=== PATIENT | male | born 1995 | race Caucasian/White ===

== ENCOUNTER 2017-10-20 20:56 | Inpatient (IN) ==
[2017-10-20] MEDS ORDERED: 0.9 % Sodium Chloride 1,000 ML IVC ONE ×2 (21:08→21:09)
--- NOTE | 2017-10-20 21:25 | Emergency Department Note ---
Disposition Clinical Impression: Elevated creatine kinase Rhabdomyolysis Qualifiers: Rhabdomyolysis type: non-traumatic Qualified Code(s): M62.82 - Rhabdomyolysis Leukocytosis Qualifiers: Leukocytosis type: unspecified Qualified Code(s): D72.829 - Elevated white blood cell count, unspecified Disposition: Admitted As Inpatient Condition: Good Time of Disposition: 22:12 General Adult HPI - General Chief complaint: ED Recheck/Abnormal Lab/Rx Stated complaint: CK elevated/ sent by UC Time Seen by Provider: 10/20/17 20:59 Source: patient Mode of arrival: ambulatory Limitations: no limitations Nursing Notes Reviewed: Yes Vital Signs Reviewed: Yes - History of Present Illness HPI Narrative: Patient is a 22-year-old male that presents the emergency department from urgent care due to having an elevated creatinine kinase level. Patient states that about 3 days ago he had worked out and did a arm work out. Patient states that since then his arms have been stiff and sore. States that last night his urine started to turn dark. Said that today his urine continued to dark in and he went to urgent care. Says that at urgent care his laboratory tests were drawn and his CK level was over 2000. Patient denies any other symptoms. Patient has any chest pain, shortness of breath, abdominal pain. Patient denies any pain in his legs or back at this time. Pain Scale: 7 - Related Data Previous Rx's Medication Instructions Recorded Cyclobenzaprine [Flexeril] 5 mg PO HS #3 tablet 10/20/17 Ibuprofen [Motrin] 600 mg PO Q6HR PRN #20 tab 10/20/17 predniSONE [PredniSONE] 20 mg PO BID #10 tablet 10/20/17 Allergies Allergy/AdvReac Type Severity Reaction Status Date / Time Amoxicillin AdvReac See Verified 10/20/17 14:46 Comments Cefprozil AdvReac See Verified 10/20/17 14:46 Comments codeine AdvReac Unresponsiv Verified 10/20/17 14:46 e Erythromycin Base AdvReac See Verified 10/20/17 14:46 [From Pediazole] Comments Sulfisoxazole AdvReac See Verified 10/20/17 14:46 [From Pediazole] Comments All systems ED: reviewed and negative except as stated. Cardiovascular: Denies: chest pain Respiratory: Denies: dyspnea Gastrointestinal: Denies: abdominal pain, nausea, vomiting Musculoskeletal: Reports: other (Bilateral upper extremity pain) Past Medical History - Past Medical History Medical history: Reports: no medical history Surgical history: Reports: no surgical history - Social History Smoking Status: Never smoker Smokeless Tobacco Status: No Alcohol use: Reports: occasionally Drug use: Reports: none Physical Exam - General Limitations: no limitations General appearance: alert, in no apparent distress - Head Head exam: atraumatic, normocephalic - Eye Eye exam: Present: normal appearance, EOMI - Neck Neck exam: Present: normal inspection, full ROM, trachea midline - Respiratory Respiratory exam: Present: normal lung sounds bilaterally. Absent: respiratory distress, wheezes - Cardiovascular Cardiovascular exam: Present: normal rhythm, tachycardia, normal heart sounds, + S1, +S2 - Abdominal Exam Abdominal exam: Present: soft, Non-Tender, normal bowel sounds - Extremities Exam Extremities exam: Present: normal inspection, full ROM, tenderness (Patient has mild bicep tenderness bilaterally) - Back Exam Back exam: Present: normal inspection, full ROM, CVA tenderness (R), CVA tenderness (L) - Neurological Exam Neurological exam: Present: alert, oriented X3 - Psychiatric Psychiatric exam: Present: normal affect, normal mood - Skin Skin exam: Present: warm, dry, intact Course Vital Signs Temperature 98.3 F 10/20/17 21:00 Pulse Rate 135 10/20/17 21:00 Respiratory Rate 18 10/20/17 21:00 Blood Pressure 130/94 10/20/17 21:00 O2 Sat by Pulse Oximetry 98 10/20/17 21:00 Temperature 98.3 F 10/20/17 21:00 Pulse Rate 135 10/20/17 21:00 Respiratory Rate 18 10/20/17 21:00 Blood Pressure 130/94 10/20/17 21:00 O2 Sat by Pulse Oximetry 98 10/20/17 21:00 Oxygen Delivery Oxygen Delivery Room Air Medical Decision Making - [facility] Narrative Medical decision making narrative: Due the patient presenting to the emergency department with an elevated CK level from urgent care there is concern for the patient possibly being in rhabdomyolysis. We will recheck CBC, BMP, urinalysis, CK as well as EKG. Patient will also be given IV fluids to hydrate. Patient's CK was greater than 20,000. Patient's white blood cell count was 15.7. The remainder of his laboratory testing was relatively unremarkable. EKG did not show any ischemic changes. Patient will need to be admitted to the hospital for further evaluation and management and ongoing hydration due to the patient having rhabdomyolysis. There is no evidence of acute kidney injury at this time however the patient is at risk for developing possible renal dysfunction due to having significantly elevated creatinine kinase and being in rhabdomyolysis. Called and spoke the admitting hospitalist and he has accepted the patient their service. Patient be admitted to the hospitalist and further evaluation and management. - Medical Records Medical records reviewed: Yes I reviewed the patient's medical records. - Lab Data Lab results reviewed: Yes I reviewed the patient's lab results. Result diagrams: 10/20/17 21:19 10/20/17 21:19 Lab Results 10/20/17 10/20/17 10/20/17 Range/Units 21:19 21:19 22:24 WBC 15.7 H (4.3-11.1) K/mcL RBC 4.98 (4.19-5.50) M/mcL Hgb 15.1 (12.9-16.9) g/dL Hct 42.8 (37.5-50.1) % MCV 85.9 (83.0-100.0) fL MCH 30.3 (28.0-33.3) pg MCHC 35.3 (31.6-35.5) g/dL RDW 13.1 (11.5-14.5) % Plt Count 308 (140-400) K/mcL MPV 10.4 (9.4-12.4) fL Immature Gran % 0.4 (0-4) % Seg Neutrophils % 71.3 % Lymphocytes % 17.3 % Monocytes % 9.5 % Eosinophils % 1.2 % Basophils % 0.3 % Neutrophils # 11.2 H (1.6-8.9) K/mcL Lymphocytes # 2.7 (0.6-4.6) K/mcL Monocytes # 1.5 H (0.0-1.3) K/mcL Eosinophils # 0.2 (0.0-0.6) K/mcL Basophils # 0.1 (0.0-0.2) K/mcL Immature Plt Fraction 5.3 (1.1-6.1) % Sodium 138 (136-145) mEq/L Potassium 3.6 (3.5-5.1) mEq/L Chloride 102 (98-107) mEq/L Carbon Dioxide 25 (23-29) mEq/L BUN 9 (6-20) mg/dL Creatinine 0.88 (0.70-1.30) mg/dL Est GFR ( Amer) > 60 (> 60) Est GFR (Non-Af Amer) > 60 (> 60) BUN/Creatinine Ratio 10 (6-26) Glucose 89 (70-105) mg/dL Calculated Osmolality 284 (280-300) Calcium 9.2 (8.6-10.3) mg/dL Creatine Kinase > 77932 H (30-223) Units/L Urine Color Yellow (Yellow) Urine Clarity Clear (Clear) Urine pH 6.0 (5.0-8.0) pH Units Ur Specific [place] 1.006 L (1.010-1.025) Urine Protein 30 H (Neg-Trace) mg/dL Urine Glucose (UA) Normal (Normal) mg/dL Urine Ketones 80 H (Negative) mg/dL Urine Blood Large H (Negative) Urine Nitrite Negative (Negative) Urine Bilirubin Negative (Negative) Urine Urobilinogen Normal (Normal) mg/dL Ur Leukocyte Esterase Negative (Negative) Urine Microscopic RBC 0-3 (0-3) per hpf Urine Microscopic WBC 15-30 H (0-3) per hpf Ur Squamous Epith Cells Many H (None-Few) per lpf Urine Bacteria None Seen (None-Few) per hpf Hyaline Casts None Seen (None-Few) per lpf Ur Culture Indicated? NO (NO) - EKG Data EKG #1 EKG attestation: Yes I reviewed and interpreted this EKG. EKG results narrative: EKG shows a sinus tachycardia with a rate of 113 beats from it, MT interval of 191, QRS duration of 82, QTC of 421 with a normal axis. There is no evidence of STEMI and EKG. Attestation Statement - Attestation Attestation: I, Hoang Gamble, examined this patient and my medical decision-making was reviewed with the HOOP PUNCHER/PA/Advanced Practice Nurse/Resident Physician. I agree with the documented findings, disposition and treatment plan as described except to the extent set forth below. 22-year-old male presents emergency Department with concerns of elevated creatinine kinase. Patient does not usually workout and he had a an intense workout within the past few days. He started noticing generalized malaise and darkening of his urine. He went to an urgent care who noted that he has significantly elevated creatinine kinase. He was sent to the emergency department for further evaluation. Patient had creatinine kinase greater than 20,000 on repeat evaluation. He was started on IV fluids he will be admitted to the hospital for further care and evaluation. No evidence of renal failure at this time.
[2017-10-20 21:26] LABS: Basophils # 0.1 K/mcL (0.0-0.2); Basophils % 0.3 %; Eosinophils # 0.2 K/mcL (0.0-0.6); Eosinophils % 1.2 %; Hematocrit 42.8 % (37.5-50.1); Hemoglobin 15.1 g/dL (12.9-16.9); Immature Granulocytes % 0.4 % (0-4); Immature Platelets 5.3 % (1.1-6.1); Lymphocytes # 2.7 K/mcL (0.6-4.6); Lymphocytes % 17.3 %; Mean Corpuscular HGB Conc 35.3 g/dL (31.6-35.5); Mean Corpuscular Hemoglobin 30.3 pg (28.0-33.3); Mean Corpuscular Volume 85.9 fL (83.0-100.0); Mean Platelet Volume 10.4 fL (9.4-12.4); Monocytes # 1.5 K/mcL (0.0-1.3); Monocytes % 9.5 %; Neutrophils # 11.2 K/mcL (1.6-8.9); Platelet Count 308 K/mcL (140-400); Red Blood Count 4.98 M/mcL (4.19-5.50); Red Cell Distribution Width 13.1 % (11.5-14.5); Segmented Neutrophils % 71.3 %
[2017-10-20 22:01] LABS: BUN/Creatinine Ratio 10 (6-26); Blood Urea Nitrogen 9 mg/dL (6-20); Calcium 9.2 mg/dL (8.6-10.3); Carbon Dioxide 25 mEq/L (23-29); Chloride 102 mEq/L (98-107); Creatine Kinase > 20000 Units/L (30-223); Glucose 89 mg/dL (70-105); Osmolality,Calculated 284 (280-300); Potassium 3.6 mEq/L (3.5-5.1); Sodium 138 mEq/L (136-145); eGFR For Non-African Americans > 60 (> 60)
[2017-10-20] MEDS ORDERED: Naloxone 0.4 MG/ML INJ IVP PRN (22:29)
[2017-10-20] MEDS ORDERED: 0.9 % Sodium Chloride 1,000 ML IVC SCH ×2 (22:30→23:30)
[2017-10-20 22:33] LABS: Bilirubin,Urine Negative (Negative); Blood,Urine Large (Negative); Clarity,Urine Clear (Clear); Color,Urine Yellow (Yellow); Glucose,Urine (UA) Normal (Normal); Ketones,Urine 80 mg/dL (Negative); Leukocyte Esterase,Urine Negative (Negative); Nitrite,Urine Negative (Negative); Protein,Urine 30 mg/dL (Neg-Trace); Specific Gravity,Urine 1.006 (1.010-1.025); Urobilinogen,Urine Normal (Normal)
[2017-10-20 22:34] LABS: Bacteria,Urine None Seen per hpf (None-Few); Hyaline Casts,Urine None Seen per lpf (None-Few); RBC,Urine 0-3 per hpf (0-3); Squamous Epithelial Cell,Urine Many per lpf (None-Few); WBC,Urine 15-30 per hpf (0-3)
--- NOTE | 2017-10-20 23:29 | Internal Med History&Physical ---
<Bereket Pena - Last Filed: 10/20/17 23:23> Date of Encounter: 10/20/17 Time of Encounter: 23:23 Internal Medicine - H&P: HPI Chief complaint: elevated CPK Admitted From: Home Plans for Post Hospital Care: Home History of present illness: Mr. Saeed is a 22 year old male presented with chief complaint of elevated CPK. Patient reports that 3 days ago he started working out for the first time. He did lat pulldown exercises with low weight and increase repetitions. Peripheral 3 days his biceps became extremely sore and he was unable to extend at the elbow bilaterally. Also he was unable to abduct his shoulders past 90 degrees. He started noticing darkening of his urine and went to urgent care where CK level was 2000. He does not report soreness and any other place. He denied headache, blurry, ear pain, neck pain, chest pain, palpitations, shortness of breath, cough, abdominal pain, nausea, vomiting, diarrhea, dysuria, hematuria, lower extremity pain, numbness, tingling, bruising. Patient's family history is noncontributory. Past Med Surg Social Fam HX - Past Medical History Medical history: no medical history - Past Surgical History Surgical History: no surgical history - Social History Smoking Status: Never smoker Smokeless Tobacco Status: No Alcohol use: occasionally Drug use: none Occupational status: student Activity Level: Independent ambulation - Family History Sister Adopted: No Race: Family Member Ethnicity: Non- Living Status: Still Living Internal Medicine - H&P: Meds No Known Home Drugs 10/21/17 [History] 3 Allergy/AdvReac Type Severity Reaction Status Date / Time codeine Allergy Unresponsiv Verified 10/21/17 10:11 e Amoxicillin AdvReac See Verified 10/21/17 10:11 Comments Cefprozil AdvReac See Verified 10/21/17 10:11 Comments Erythromycin Base AdvReac See Verified 10/21/17 10:11 [From Pediazole] Comments Sulfisoxazole AdvReac See Verified 10/21/17 10:11 [From Pediazole] Comments All Systems PM: A 10-system review of systems was performed and is negative for pertinent findings except as documented above in the HPI. Review of systems: Constitutional: Denies fever, chills HEENT: Denies headache, vision changes, neck pain, sore throat, rhinorrhea Heart: Denies chest pain palpitations Lungs: Denies shortness of breath cough Abdomen: Denies abdominal pain nausea vomiting diarrhea Back: Denies back pain Kidney: Denies dysuria, hematuria Skin: Denies rash, lesions Extremities: Denies swelling, bruising Neuro: Denies numbness and tingling - Constitutional Vitals: Temp Pulse Resp BP Pulse Ox 98.3 F 135 18 130/94 98 10/20/17 21:10/20/17 21:10/20/17 21:10/20/17 21:10/20/17 21:00 Exam: General: Pleasant without distress HEENT: Head atraumatic, normocephalic, EOMI, PERRL, neck nontender to palpation , absent lymphadenopathy, Moist Mucous Membranes, Heart: Sinus tachycardia Lungs: Clear to auscultation bilaterally Abdomen: Soft nontender, nondistended positive bowel sounds Skin: warm and dry, absent rash Extremities: Absent pedal edema, Musculoskeletal: Patient is unable to extend elbow past 45 degrees bilaterally. He is unable to abduct shoulders past 90 degrees. He is able to fully flex at the elbow and abduct. Patient has soreness with palpation of bilateral bicep tendons. There is no tenderness of triceps, deltoids, supraspinatus, infraspinatus. Neuro: Cranial nerves II through XII intact, LE sensation equal bilaterally, UE and LEstrength 5/5, alert oriented 3, gait intact Vascular: Pedal and radial pulses 2 out of 4 Internal Med - H&P Results - Labs CBC & Chem 7: 10/20/17 21:19 10/20/17 21:19 - Assessment and plan (1) Rhabdomyolysis Current Visit: Yes Status: Acute Assessment and plan: 22-year-old male presents after having found but returned To have elevated creatinine kinase Patient started exercising for the first time 3 days ago and ever since has had bilateral biceps soreness Patient's creatinine kinase is greater than 20,000 He also reported darkening of his urine Serum creatinine potassium, sodium are normal limits Urinalysis shows large flat without microscopic red blood cells Patient's WBC is elevated at 15.7 likely secondary to rhabdomyolysis. Patient has been given 3 L of normal saline in the emergency room We will continue maintenance IV fluids of 300 mL an hour Repeat CMP in the morning with magnesium and phosphorus. Qualifiers: Rhabdomyolysis type: non-traumatic Qualified Code(s): M62.82 - Rhabdomyolysis (2) DVT prophylaxis Current Visit: Yes Status: Acute Assessment and plan: ambulate tid. - Time Spent With Patient Total time spent is greater than 50% in coordination of care (as documented) at patient's floor/unit and/or counseling patient: <Carleen Adames - Last Filed: 10/24/17 08:17> Date of Encounter: 10/20/17 Internal Medicine - H&P: HPI History of present illness: Mr. Saeed is a 22 year old male All Systems PM: A 10-system review of systems was performed and is negative for pertinent findings except as documented above in the HPI. - Constitutional Vitals: Temp Pulse Resp BP Pulse Ox 97.7 F 92 16 118/72 97 10/24/17 08:05 10/24/17 08:05 10/24/17 08:05 10/24/17 08:05 10/24/17 08:05 Internal Med - H&P Results - Labs CBC & Chem 7: 10/24/17 03:02 10/24/17 03:02 Labs: Short CBC 10/24/17 Range/Units 03:02 WBC 9.9 (4.3-11.1) K/mcL Hgb 13.4 (12.9-16.9) g/dL Hct 39.4 (37.5-50.1) % Plt Count 291 (140-400) K/mcL BMP 10/24/17 03:02 Sodium 138 Potassium 3.7 Chloride 106 Carbon Dioxide 26 BUN 6 Creatinine 0.61 L Glucose 91 Calcium 8.9 Liver Function 10/24/17 Range/Units 03:02 Total Bilirubin 0.3 (0.3-1.0) mg/dL Direct Bilirubin 0.1 (0.0-0.2) mg/dL AST 211 H (13-39) Units/L ALT 160 H (7-52) Units/L Alkaline Phosphatase 55 (34-104) Units/L Albumin 4.0 (3.5-5.7) g/dL - ABG Interpretation ABG results: 10/22/17 10/22/17 10/23/17 09:46 10:50 06:41 VBG pH 7.37 7.34 7.40 VBG pCO2 40 L VBG pO2 130 H VBG HCO3 25 - Assessment and plan (1) Rhabdomyolysis Current Visit: Yes Status: Acute Qualifiers: Rhabdomyolysis type: non-traumatic Qualified Code(s): M62.82 - Rhabdomyolysis (2) Hypokalemia Current Visit: Yes Status: Acute - Time Spent With Patient Total time spent is greater than 50% in coordination of care (as documented) at patient's floor/unit and/or counseling patient: - Attending Attestation Patient seen and examined. Chart reviewed. Case reviewed with resident. Agree with assessment and plan we will continue aggressive fluid hydration. Monitor CPK and electrolytes. Correct as needed.
[2017-10-21] MEDS ORDERED: Acetaminophen 325 MG TABLET PO PRN (00:36)
[2017-10-21] MEDS: 0.9 % Sodium Chloride 1,000 ML IVC SCH ×7 (01:36→22:09)
[2017-10-21 02:03] LABS: Hematocrit 36.6 % (37.5-50.1); Mean Corpuscular HGB Conc 34.7 g/dL (31.6-35.5); Mean Corpuscular Hemoglobin 30.2 pg (28.0-33.3); Mean Corpuscular Volume 87.1 fL (83.0-100.0); Mean Platelet Volume 10.5 fL (9.4-12.4); Platelet Count 240 K/mcL (140-400); Red Cell Distribution Width 13.1 % (11.5-14.5)
[2017-10-21 02:07] LABS: Hemoglobin 12.7 g/dL (12.9-16.9)
[2017-10-21 02:23] LABS: Alanine Aminotransferase 145 Units/L (7-52); Albumin 3.7 g/dL (3.5-5.7); Albumin/Globulin Ratio 1.9 (1.1-2.2); Alkaline Phosphatase 53 Units/L (34-104); Aspartate Amino Transferase 534 Units/L (13-39); BUN/Creatinine Ratio 10 (6-26); Bilirubin,Total 0.4 mg/dL (0.3-1.0); Blood Urea Nitrogen 7 mg/dL (6-20); Calcium 7.9 mg/dL (8.6-10.3); Carbon Dioxide 24 mEq/L (23-29); Chloride 110 mEq/L (98-107); Glucose 94 mg/dL (70-105); Magnesium 1.7 mg/dL (1.6-2.6); Osmolality,Calculated 288 (280-300); Phosphorous 3.4 mg/dL (2.7-4.5); Potassium 3.4 mEq/L (3.5-5.1); Sodium 140 mEq/L (136-145); Total Protein 5.7 g/dL (6.4-8.9); eGFR For Non-African Americans > 60 (> 60)
--- NOTE | 2017-10-21 09:57 | Internal Med Progress Note ---
<Reinaldo Salas - Last Filed: 10/21/17 16:01> Hospitalist Progress Note - Encounter Date of Encounter: 10/21/17 - Exam Vitals: Temp Pulse Resp BP Pulse Ox 98.9 F 103 16 134/87 99 10/21/17 10:59 10/21/17 10:59 10/21/17 10:59 10/21/17 10:59 10/21/17 10:59 - Assessment and Plan (1) Rhabdomyolysis Current Visit: Yes Status: Acute (2) DVT prophylaxis Current Visit: Yes Status: Acute - Time Spent with Patient Total time spent is greater than 50% in coordination of care (as documented) at patient's floor/unit and/or counseling patient: Internal Medicine: Result - Labs CBC & Chem 7: 10/21/17 01:49 10/21/17 11:45 Labs: Short CBC 10/21/17 Range/Units 01:49 WBC 12.0 H (4.3-11.1) K/mcL Hgb 12.7 L D (12.9-16.9) g/dL Hct 36.6 L (37.5-50.1) % Plt Count 240 (140-400) K/mcL BMP 10/21/17 10/21/17 01:49 11:45 Sodium 140 140 Potassium 3.4 L 3.6 Chloride 110 H 109 H Carbon Dioxide 24 25 BUN 7 5 L Creatinine 0.68 L 0.64 L Glucose 94 95 Calcium 7.9 L 8.8 Liver Function 10/21/17 10/21/17 Range/Units 01:49 11:45 Total Bilirubin 0.4 0.5 (0.3-1.0) mg/dL AST 534 H 548 H (13-39) Units/L ALT 145 H 168 H (7-52) Units/L Alkaline Phosphatase 53 56 (34-104) Units/L Albumin 3.7 4.0 (3.5-5.7) g/dL Consult Discharge Plan - Plan Referrals: NONE,PCP [Primary Care Provider] - Josue Crandall, [employer] T[employer]ER OPERATOR [Family Provider] - - Attending Attestation I examined this patient and my medical decision-making was reviewed with the Resident Physician on 10/21/17. I agree with the documented findings, disposition and treatment plan as described except to the extent set forth below. Mr Saeed is currently admitted for acute rhabdomyolysis. He remains moderate to high risk due to potential for worsening clinical status. He is at risk for acute renal failure related to rhabdo. Mr Saeed is resting at this time. He feels about the same. No fever or chills. No cough. No new muscle pain. Exam alert Comfortable Mucus membranes dry Heart reg Lungs clear ABd soft I/P 1. Acute rhabdoyolysis - Continue aggressive IV hydration. Consider adding bicarb to solution. Follow CPK and calcium. <Dillon Carlisle - Last Filed: 10/21/17 19:18> Hospitalist Progress Note - Encounter Date of Encounter: 10/21/17 Time of Encounter: 10:00 - Subjective Interval History: Mr. Saeed is a 22-year-old male with an unremarkable past medical history who has been admitted to that in the [facility] floor because of rhabdomyolysis with CPK of greater than 20,000. Patient endorses that he recently started working out in the gym the very first time, and became really sore with decreased range of motion of his upper extremities. During his initial presentation, patient was unable to abduct his shoulders past 90 degrees but has been progressively getting more range of motion when I met him this morning. He denies any other systemic signs like fever, shortness of breath, chest pain, belly pain, dysuria, hematuria . he was found to have elevated ALT (168), AST (548) secondary to his rhabdomyolysis. Patient currently on maintenance fluid at 300 ml/hr. He endorses no acute distress. - Exam Vitals: Temp Pulse Resp BP Pulse Ox 98.3 F 86 16 115/77 100 10/21/17 07:19 10/21/17 07:19 10/21/17 07:19 10/21/17 07:19 10/21/17 08:53 Exam: General: Pleasant without distress HEENT: Head atraumatic, normocephalic, EOMI, PERRL, neck nontender to palpation , absent lymphadenopathy, Moist Mucous Membranes, Heart: Sinus rhythm Lungs: Clear to auscultation bilaterally Abdomen: Soft nontender, nondistended positive bowel sounds Skin: warm and dry, absent rash Extremities: Absent pedal edema, Musculoskeletal: Range of motion better since presentation. Patient is able to a abduct is arm [id number] degrees. Decreased soreness with palpation of bilateral bicep tendons. No tenderness in trapezius, rhomboids, latissimus dorsi appreciated. Neuro: Cranial nerves II through XII intact, LE sensation equal bilaterally, UE and LEstrength 5/5, alert oriented 3, gait intact Vascular: Pedal and radial pulses 2 out of 4 - Assessment and Plan (1) Rhabdomyolysis Current Visit: Yes Status: Acute Assessment and Plan: -Likely due to first time heavy workout in the gym - Patient. Presented with elevated CPK of greater than 20,000, dark-colored urine with soreness in the bilateral biceps - Patient denies any lethargy, fatigue, shortness of breath at the moment. Denies any bouts of agitation, emesis or nausea. -Currently not aneuric and is on 0.9% sodium chloride 300 ml/h, continue to monitor. DVT Prophylaxis: ambulate TID - Time Spent with Patient Total time spent is greater than 50% in coordination of care (as documented) at patient's floor/unit and/or counseling patient: Internal Medicine: Result - Labs CBC & Chem 7: 10/21/17 01:49 10/21/17 11:45 Labs: Short CBC 10/21/17 Range/Units 01:49 WBC 12.0 H (4.3-11.1) K/mcL Hgb 12.7 L D (12.9-16.9) g/dL Hct 36.6 L (37.5-50.1) % Plt Count 240 (140-400) K/mcL BMP 10/21/17 01:49 Sodium 140 Potassium 3.4 L Chloride 110 H Carbon Dioxide 24 BUN 7 Creatinine 0.68 L Glucose 94 Calcium 7.9 L Liver Function 10/21/17 Range/Units 01:49 Total Bilirubin 0.4 (0.3-1.0) mg/dL AST 534 H (13-39) Units/L ALT 145 H (7-52) Units/L Alkaline Phosphatase 53 (34-104) Units/L Albumin 3.7 (3.5-5.7) g/dL <Reinaldo Salas - Last Filed: 10/21/17 16:01> (1) Rhabdomyolysis Qualifiers: Rhabdomyolysis type: non-traumatic Qualified Code(s): M62.82 - Rhabdomyolysis <Dillon Carlisle - Last Filed: 10/21/17 19:18> (1) Rhabdomyolysis Qualifiers: Rhabdomyolysis type: non-traumatic Qualified Code(s): M62.82 - Rhabdomyolysis
[2017-10-21 13:20] LABS: Alanine Aminotransferase 168 Units/L (7-52); Albumin/Globulin Ratio 1.8 (1.1-2.2); Alkaline Phosphatase 56 Units/L (34-104); Aspartate Amino Transferase 548 Units/L (13-39); BUN/Creatinine Ratio 8 (6-26); Bilirubin,Total 0.5 mg/dL (0.3-1.0); Blood Urea Nitrogen 5 mg/dL (6-20); Calcium 8.8 mg/dL (8.6-10.3); Carbon Dioxide 25 mEq/L (23-29); Chloride 109 mEq/L (98-107); Creatine Kinase > 20000 Units/L (30-223); Globulin 2.2 g/dL (2.4-3.5); Glucose 95 mg/dL (70-105); Osmolality,Calculated 287 (280-300); Potassium 3.6 mEq/L (3.5-5.1); Sodium 140 mEq/L (136-145); Total Protein 6.2 g/dL (6.4-8.9); eGFR For Non-African Americans > 60 (> 60)
[2017-10-21] MEDS ORDERED: 0.9 % Sodium Chloride 1,000 ML IVC ONE (17:41)
[2017-10-22] MEDS: 0.9 % Sodium Chloride 1,000 ML IVC SCH ×6 (02:11→22:09)
[2017-10-22 05:50] LABS: Basophils % 0.4 %; Eosinophils # 0.4 K/mcL (0.0-0.6); Eosinophils % 5.5 %; Hematocrit 37.7 % (37.5-50.1); Hemoglobin 12.9 g/dL (12.9-16.9); Immature Granulocytes % 0.4 % (0-4); Lymphocytes # 2.4 K/mcL (0.6-4.6); Lymphocytes % 32.3 %; Mean Corpuscular HGB Conc 34.2 g/dL (31.6-35.5); Mean Corpuscular Hemoglobin 29.9 pg (28.0-33.3); Mean Corpuscular Volume 87.5 fL (83.0-100.0); Mean Platelet Volume 10.5 fL (9.4-12.4); Monocytes # 0.9 K/mcL (0.0-1.3); Monocytes % 12.1 %; Neutrophils # 3.6 K/mcL (1.6-8.9); Platelet Count 229 K/mcL (140-400); Red Blood Count 4.31 M/mcL (4.19-5.50); Red Cell Distribution Width 13.1 % (11.5-14.5); Segmented Neutrophils % 49.3 %
--- NOTE | 2017-10-22 08:26 | Internal Med Progress Note ---
<Cheyenne RiverJorge barrett - Last Filed: 10/22/17 12:46> Hospitalist Progress Note - Encounter Date of Encounter: 10/22/17 Time of Encounter: 08:45 - Subjective Interval History: Interval history: Mr. Adorno, accompanied by mother, admitted 10/20 with cc: dark colored urine, sore upper extremities muscles after working out 3 days prior. CK level at urgent care of 1999, repeat in [facility] ED , kidney function remains intake after aggressive hydration. Denies seizure, crush injury, drug ingestion. He reports feeling like he is urinating less today. He endorses mild bilateral bicep pain. - Exam Vitals: Temp Pulse Resp BP Pulse Ox 98.0 F 108 16 123/73 100 10/22/17 07:18 10/22/17 07:18 10/22/17 07:18 10/22/17 07:18 10/22/17 07:18 Exam: gen - a&ox3, nad, answering q's appropriately cv - rrr, s1/s2, no murmur, gallop, or rub lung - ctab, normal chest wall excursion abd - no flank tenderness, soft, non-tender, non-distended msk - limited extension upper extremities at bicep, no joint crepitus or warmth skin - no cyanosis or edema - Assessment and Plan (1) Rhabdomyolysis Current Visit: Yes Status: Acute Assessment and Plan: UOP at ~3cc/kg/hr yesterday, similar output to date GFR and Creat wnl CK remains elevated >32329 AST/ALT downtrending venous pH 7.3 P: Continue monitoring pH, electrolytes, kidney function, UOP, CK, AST/ALT Giving 3 amps bicarb for urine alkalinization Continue hydration 300cc/hr DVT Prophylaxis: no chemical dvt prophylaxis is ambulating TID - Time Spent with Patient Total time spent is greater than 50% in coordination of care (as documented) at patient's floor/unit and/or counseling patient: Internal Medicine: Result - Labs CBC & Chem 7: 10/22/17 04:31 10/22/17 09:37 Labs: Short CBC 10/22/17 Range/Units 04:31 WBC 7.3 (4.3-11.1) K/mcL Hgb 12.9 (12.9-16.9) g/dL Hct 37.7 (37.5-50.1) % Plt Count 229 (140-400) K/mcL Neutrophils # 3.6 (1.6-8.9) K/mcL [facility] 10/21/17 11:45 Sodium 140 Potassium 3.6 Chloride 109 H Carbon Dioxide 25 BUN 5 L Creatinine 0.64 L Glucose 95 Calcium 8.8 Liver Function 10/21/17 Range/Units 11:45 Total Bilirubin 0.5 (0.3-1.0) mg/dL AST 548 H (13-39) Units/L ALT 168 H (7-52) Units/L Alkaline Phosphatase 56 (34-104) Units/L Albumin 4.0 (3.5-5.7) g/dL Consult Discharge Plan - Plan Referrals: NONE,PCP [Primary Care Provider] - Josue Crandall, DIRECTOR OF PERSONNEL [Family Provider] - <Reinaldo Salas - Last Filed: 10/22/17 15:15> Hospitalist Progress Note - Encounter Date of Encounter: 10/22/17 - Exam Vitals: Temp Pulse Resp BP Pulse Ox 98.1 F 92 16 125/78 98 10/22/17 11:44 10/22/17 11:44 10/22/17 11:44 10/22/17 11:44 10/22/17 11:44 - Assessment and Plan (1) Rhabdomyolysis Current Visit: Yes Status: Acute (2) Hypokalemia Current Visit: Yes Status: Acute Assessment and Plan: New today. Replace. - Time Spent with Patient Total time spent is greater than 50% in coordination of care (as documented) at patient's floor/unit and/or counseling patient: Internal Medicine: Result - Labs CBC & Chem 7: 10/22/17 04:31 10/22/17 09:37 Labs: Short CBC 10/22/17 Range/Units 04:31 WBC 7.3 (4.3-11.1) K/mcL Hgb 12.9 (12.9-16.9) g/dL Hct 37.7 (37.5-50.1) % Plt Count 229 (140-400) K/mcL Neutrophils # 3.6 (1.6-8.9) K/mcL BMP 10/22/17 09:37 Sodium 142 Potassium 3.3 L Chloride 110 H Carbon Dioxide 26 BUN 3 L Creatinine 0.61 L Glucose 104 Calcium 8.7 Liver Function 10/22/17 Range/Units 09:37 Total Bilirubin 0.6 (0.3-1.0) mg/dL Direct Bilirubin 0.1 (0.0-0.2) mg/dL AST 456 H (13-39) Units/L ALT 176 H (7-52) Units/L Alkaline Phosphatase 49 (34-104) Units/L Albumin 4.1 (3.5-5.7) g/dL Urine 10/22/17 Range/Units 11:32 Urine Color Yellow (Yellow) Urine Clarity Clear (Clear) Urine pH 7.5 (5.0-8.0) pH Units Ur Specific [place] < 1.005 L (1.010-1.025) Urine Protein Negative (Neg-Trace) mg/dL Urine Glucose (UA) Normal (Normal) mg/dL - Attending Attestation I examined this patient and my medical decision-making was reviewed with the Resident Physician on 10/22/17. I agree with the documented findings, disposition and treatment plan as described except to the extent set forth below. Mr Saeed is currently admitted for acute rhabdomyolysis. He remains moderate to high risk due to potential for worsening renal function as his CP[place] still greater [place] [address]. Mr Saeed feels OK. Still some achiness. No fever or chills. Tolerating IV fluids but feels he is urinating less. No CP or SOB. No GI issues. Exam alert. Comfortable Mucus membranes moist Not tachycardic No wheeze Abd soft No edema I/P 1. Acute rhabdo - continue IV fluids. Bicarb held as urine pH 7.5 today. Monitor renal function. Further diagnoses and plan as above. <Jorge Barraza - Last Filed: 10/22/17 12:46> (1) Rhabdomyolysis Qualifiers: Rhabdomyolysis type: non-traumatic Qualified Code(s): M62.82 - Rhabdomyolysis <Reinaldo Salas - Last Filed: 10/22/17 15:15> (1) Rhabdomyolysis Qualifiers: Rhabdomyolysis type: non-traumatic Qualified Code(s): M62.82 - Rhabdomyolysis
[2017-10-22] MEDS ORDERED: 0.9 % Sodium Chloride 1,000 ML IVC SCH (09:12)
[2017-10-22 10:06] LABS: VBG Ionized Calcium 1.14 mmol/L (1.15-1.35); VBG PH 7.37 pH Units (7.32-7.42)
[2017-10-22 10:14] LABS: Alanine Aminotransferase 176 Units/L (7-52); Albumin 4.1 g/dL (3.5-5.7); Alkaline Phosphatase 49 Units/L (34-104); Aspartate Amino Transferase 456 Units/L (13-39); BUN/Creatinine Ratio 5 (6-26); Bilirubin,Direct 0.1 mg/dL (0.0-0.2); Bilirubin,Indirect 0.5 mg/dL (0.0-1.2); Bilirubin,Total 0.6 mg/dL (0.3-1.0); Blood Urea Nitrogen 3 mg/dL (6-20); Calcium 8.7 mg/dL (8.6-10.3); Carbon Dioxide 26 mEq/L (23-29); Chloride 110 mEq/L (98-107); Globulin 2.1 g/dL (2.4-3.5); Glucose 104 mg/dL (70-105); Osmolality,Calculated 291 (280-300); Potassium 3.3 mEq/L (3.5-5.1); Sodium 142 mEq/L (136-145); Total Protein 6.2 g/dL (6.4-8.9); eGFR For Non-African Americans > 60 (> 60)
[2017-10-22 10:53] LABS: VBG Ionized Calcium 1.18 mmol/L (1.15-1.35); VBG PH 7.34 pH Units (7.32-7.42)
[2017-10-22] MEDS ORDERED: Sodium Bicarbonate 150 MEQ in D5% in Water 1,000 ML IVC SCH ×2 (11:00→11:15)
[2017-10-22 11:51] LABS: Bilirubin,Urine Negative (Negative); Blood,Urine Negative (Negative); Clarity,Urine Clear (Clear); Color,Urine Yellow (Yellow); Glucose,Urine (UA) Normal (Normal); Ketones,Urine Negative (Negative); Leukocyte Esterase,Urine Negative (Negative); Nitrite,Urine Negative (Negative); PH,Urine 7.5 pH Units (5.0-8.0); Protein,Urine Negative (Neg-Trace); Specific Gravity,Urine < 1.005 (1.010-1.025); Urobilinogen,Urine Normal (Normal)
[2017-10-22] MEDS ORDERED: Potassium Chloride Elixir 20 MEQ/15 ML UDC PO ONE (12:41)
[2017-10-23] MEDS: 0.9 % Sodium Chloride 1,000 ML IVC SCH ×6 (02:28→23:34)
[2017-10-23 06:41] LABS: Hematocrit 39.8 % (37.5-50.1); Hemoglobin 13.7 g/dL (12.9-16.9); Mean Corpuscular HGB Conc 34.4 g/dL (31.6-35.5); Mean Corpuscular Hemoglobin 29.8 pg (28.0-33.3); Mean Corpuscular Volume 86.7 fL (83.0-100.0); Mean Platelet Volume 10.2 fL (9.4-12.4); Platelet Count 263 K/mcL (140-400); Red Blood Count 4.59 M/mcL (4.19-5.50); Red Cell Distribution Width 13.2 % (11.5-14.5)
[2017-10-23 06:45] LABS: VBG HCO3 25 mEq/L (21-27); VBG PCO2 40 mmHg (41-51); VBG PO2 130 mmHg (25-50)
[2017-10-23 07:07] LABS: Alanine Aminotransferase 168 Units/L (7-52); Albumin/Globulin Ratio 1.9 (1.1-2.2); Alkaline Phosphatase 54 Units/L (34-104); Aspartate Amino Transferase 333 Units/L (13-39); BUN/Creatinine Ratio 9 (6-26); Bilirubin,Indirect 0.3 mg/dL (0.0-1.2); Bilirubin,Total 0.3 mg/dL (0.3-1.0); Blood Urea Nitrogen 5 mg/dL (6-20); Calcium 8.6 mg/dL (8.6-10.3); Carbon Dioxide 22 mEq/L (23-29); Chloride 108 mEq/L (98-107); Globulin 2.1 g/dL (2.4-3.5); Glucose 99 mg/dL (70-105); Osmolality,Calculated 285 (280-300); Potassium 3.7 mEq/L (3.5-5.1); Sodium 139 mEq/L (136-145); Total Protein 6.1 g/dL (6.4-8.9); eGFR For Non-African Americans > 60 (> 60)
--- NOTE | 2017-10-23 08:04 | Internal Med Progress Note ---
<Jorge Barraza - Last Filed: 10/23/17 15:37> Hospitalist Progress Note - Encounter Date of Encounter: 10/23/17 Time of Encounter: 09:30 - Subjective Interval History: Interval history: Mr. Adorno, accompanied by mother, admitted 10/20 with cc: dark colored urine, sore upper extremities muscles after working out 3 days prior. CK level at urgent care of 1999, repeat in [facility] ED , kidney function remains intake after aggressive hydration. Denies seizure, crush injury, drug ingestion. He reports feeling like he is urinating less today. He endorses mild bilateral bicep pain. - Exam Vitals: Temp Pulse Resp BP Pulse Ox 97.6 F 85 16 124/77 100 10/23/17 07:49 10/23/17 07:49 10/23/17 07:49 10/23/17 07:49 10/23/17 07:49 Exam: gen - a&ox3, nad, answering q's appropriately cv - rrr, s1/s2, no murmur, gallop, or rub lung - ctab, normal chest wall excursion abd - no flank tenderness, soft, non-tender, non-distended msk - persisiting limited extension upper extremities at bicep, no joint crepitus or warmth skin - no cyanosis or edema - Assessment and Plan (1) Rhabdomyolysis Current Visit: Yes Status: Acute Assessment and Plan: Continuing aggressive IV fluids UA wnl with expectedly low specific gravity 9/3 Transaminases are downtrending, [place] levels remain [place] 34047; higher than "AMR" analytical measurement range per laboratory Turnaround for CK values with [facility] Lab is 2-3 days (2) Hypokalemia Current Visit: Yes Status: Acute Assessment and Plan: 3.3->3.7 after repletion with KCl 40mg po once - Time Spent with Patient Total time spent is greater than 50% in coordination of care (as documented) at patient's floor/unit and/or counseling patient: Internal Medicine: Result - Labs CBC & Chem 7: 10/23/17 06:28 10/23/17 06:28 Labs: Short CBC 10/23/17 Range/Units 06:28 WBC 8.8 (4.3-11.1) K/mcL Hgb 13.7 (12.9-16.9) g/dL Hct 39.8 (37.5-50.1) % Plt Count 263 (140-400) K/mcL BMP 10/22/17 10/23/17 09:37 06:28 Sodium 142 139 Potassium 3.3 L 3.7 Chloride 110 H 108 H Carbon Dioxide 26 22 L BUN 3 L 5 L Creatinine 0.61 L 0.54 L Glucose 104 99 Calcium 8.7 8.6 Liver Function 10/22/17 10/23/17 Range/Units 09:37 06:28 Total Bilirubin 0.6 0.3 (0.3-1.0) mg/dL Direct Bilirubin 0.1 0.0 (0.0-0.2) mg/dL AST 456 H 333 H (13-39) Units/L ALT 176 H 168 H (7-52) Units/L Alkaline Phosphatase 49 54 (34-104) Units/L Albumin 4.1 4.0 (3.5-5.7) g/dL Urine 10/22/17 Range/Units 11:32 Urine Color Yellow (Yellow) Urine Clarity Clear (Clear) Urine pH 7.5 (5.0-8.0) pH Units Ur Specific [place] < 1.005 L (1.010-1.025) Urine Protein Negative (Neg-Trace) mg/dL Urine Glucose (UA) Normal (Normal) mg/dL Consult Discharge Plan - Plan Referrals: NONE,PCP [Primary Care Provider] - Josue Crandall, [employer] OPERATOR [Family Provider] - <Stanford Burris - Last Filed: 10/23/17 16:06> Hospitalist Progress Note - Encounter Date of Encounter: 10/23/17 Time of Encounter: 16:04 - Exam Vitals: Temp Pulse Resp BP Pulse Ox 98.6 F 105 16 118/76 97 10/23/17 12:04 10/23/17 12:04 10/23/17 12:04 10/23/17 12:04 10/23/17 12:04 - Assessment and Plan (1) Rhabdomyolysis Current Visit: Yes Status: Acute (2) Hypokalemia Current Visit: Yes Status: Acute - Time Spent with Patient Total time spent is greater than 50% in coordination of care (as documented) at patient's floor/unit and/or counseling patient: Internal Medicine: Result - Labs CBC & Chem 7: 10/23/17 06:28 10/23/17 06:28 Labs: Short CBC 10/23/17 Range/Units 06:28 WBC 8.8 (4.3-11.1) K/mcL Hgb 13.7 (12.9-16.9) g/dL Hct 39.8 (37.5-50.1) % Plt Count 263 (140-400) K/mcL BMP 10/23/17 06:28 Sodium 139 Potassium 3.7 Chloride 108 H Carbon Dioxide 22 L BUN 5 L Creatinine 0.54 L Glucose 99 Calcium 8.6 Liver Function 10/23/17 Range/Units 06:28 Total Bilirubin 0.3 (0.3-1.0) mg/dL Direct Bilirubin 0.0 (0.0-0.2) mg/dL AST 333 H (13-39) Units/L ALT 168 H (7-52) Units/L Alkaline Phosphatase 54 (34-104) Units/L Albumin 4.0 (3.5-5.7) g/dL - Attending Attestation I saw, evaluated and examined this patient and my medical decision-making was reviewed with the Resident Physician, Jorge Barraza. I agree with the documented findings, disposition and treatment plan as described except to any changes set forth below. We independently had [id number] contact with the patient. 22-year-old male patient hospitalized here for acute rhabdomyolysis. Patient is feeling better overall. Continues to have some tiredness but his upper extremity pain has improved. He is able to move them much better. On examination, patient is awake and alert. Abdomen is soft, nontender. Mild tenderness over his upper extremity muscles. Heart sounds are normal. Breath sounds are normal. Acute rhabdomyolysis: CPK persistently elevated. Continue IV hydration. Renal function remained stable. We will continue to follow. Moderate risk for complications. <Jorge Barraza - Last Filed: 10/23/17 15:37> (1) Rhabdomyolysis Qualifiers: Rhabdomyolysis type: non-traumatic Qualified Code(s): M62.82 - Rhabdomyolysis <Stanford Burris - Last Filed: 10/23/17 16:06> (1) Rhabdomyolysis Qualifiers: Rhabdomyolysis type: non-traumatic Qualified Code(s): M62.82 - Rhabdomyolysis
[2017-10-23 08:39] LABS: Creatine Kinase > 20000 Units/L (30-223)
[2017-10-24 03:42] LABS: Hematocrit 39.4 % (37.5-50.1); Hemoglobin 13.4 g/dL (12.9-16.9); Mean Corpuscular Hemoglobin 29.5 pg (28.0-33.3); Mean Corpuscular Volume 86.6 fL (83.0-100.0); Mean Platelet Volume 10.3 fL (9.4-12.4); Platelet Count 291 K/mcL (140-400); Red Blood Count 4.55 M/mcL (4.19-5.50); Red Cell Distribution Width 13.2 % (11.5-14.5)
[2017-10-24 04:02] LABS: Alanine Aminotransferase 160 Units/L (7-52); Albumin/Globulin Ratio 1.8 (1.1-2.2); Alkaline Phosphatase 55 Units/L (34-104); Aspartate Amino Transferase 211 Units/L (13-39); BUN/Creatinine Ratio 10 (6-26); Bilirubin,Direct 0.1 mg/dL (0.0-0.2); Bilirubin,Indirect 0.2 mg/dL (0.0-1.2); Bilirubin,Total 0.3 mg/dL (0.3-1.0); Blood Urea Nitrogen 6 mg/dL (6-20); Calcium 8.9 mg/dL (8.6-10.3); Carbon Dioxide 26 mEq/L (23-29); Chloride 106 mEq/L (98-107); Globulin 2.2 g/dL (2.4-3.5); Glucose 91 mg/dL (70-105); Osmolality,Calculated 283 (280-300); Potassium 3.7 mEq/L (3.5-5.1); Sodium 138 mEq/L (136-145); Total Protein 6.2 g/dL (6.4-8.9); eGFR For Non-African Americans > 60 (> 60)
[2017-10-24] MEDS: 0.9 % Sodium Chloride 1,000 ML IVC SCH ×5 (05:59→20:28)
--- NOTE | 2017-10-24 08:12 | Internal Med Progress Note ---
<TusharArabella N - Last Filed: 10/24/17 10:34> Hospitalist Progress Note - Encounter Date of Encounter: 10/24/17 Time of Encounter: 08:12 - Subjective Interval History: Mr. Saeed is a 22-year old male who was admitted on 10/20 after experiencing dark colored urine and sore upper extremity muscles after working out a few days prior. CK was found to be >20,000, and he was started on aggressive hydration. On exam today, Mr. Saeed reports some discomfort and pressure in his right upper extremity, from approximately mid-bicep area to his fingers. He has right antecubital IV access. He states that he has been keeping that arm fairly still as he feels the IV pulling when he moves his arm. His mother, who is present at the bedside, inquires as to his CK level today, which is still pending. Per yesterday's labs, his CK had not yet started to improve. He denies any shortness of breath, GI discomfort, or other complaints. He states that he is trying to increase his PO fluid intake. - Exam Vitals: Temp Pulse Resp BP Pulse Ox 97.7 F 92 16 118/72 97 10/24/17 08:05 10/24/17 08:05 10/24/17 08:05 10/24/17 08:05 10/24/17 08:05 Exam: * General: Adult male lying in bed in no acute distress. He is alert and oriented, and answers questions appropriately. * HEENT: Atraumatic and normocephalic. * Cardiovascular: Regular rate and rhythm. S1 and S2 present. No murmurs, gallops, or rubs. * Respiratory: CTA bilaterally. Chest rises and falls symmetrically. * Gastrointestinal: Active bowel sounds present. Abdomen is soft and nontender. * Extremities: No clubbing, cyanosis, or edema. - Assessment and Plan (1) Rhabdomyolysis Current Visit: Yes Status: Acute Assessment and Plan: Patient had CK >20,000 on admission, which has not yet started to decrease. He is on IV fluids at 250mL/hour. Today's CK level is pending. Patient continues to have appropriate renal function with creatinine WNL. Will continue to provide IV fluid hydration and other supportive measures. - Time Spent with Patient Total time spent is greater than 50% in coordination of care (as documented) at patient's floor/unit and/or counseling patient: Internal Medicine: Result - Labs CBC & Chem 7: 10/24/17 03:02 10/24/17 03:02 Labs: Short CBC 10/24/17 Range/Units 03:02 WBC 9.9 (4.3-11.1) K/mcL Hgb 13.4 (12.9-16.9) g/dL Hct 39.4 (37.5-50.1) % Plt Count 291 (140-400) K/mcL BMP 10/24/17 03:02 Sodium 138 Potassium 3.7 Chloride 106 Carbon Dioxide 26 BUN 6 Creatinine 0.61 L Glucose 91 Calcium 8.9 Liver Function 10/24/17 Range/Units 03:02 Total Bilirubin 0.3 (0.3-1.0) mg/dL Direct Bilirubin 0.1 (0.0-0.2) mg/dL AST 211 H (13-39) Units/L ALT 160 H (7-52) Units/L Alkaline Phosphatase 55 (34-104) Units/L Albumin 4.0 (3.5-5.7) g/dL Consult Discharge Plan - Plan Referrals: NONE,PCP [Primary Care Provider] - Josue Crandall, [employer] [Family Provider] - <Stanford Burris - Last Filed: 10/24/17 15:06> Hospitalist Progress Note - Encounter Date of Encounter: 10/24/17 Time of Encounter: 10:15 - Exam Vitals: Temp Pulse Resp BP Pulse Ox 98.1 F 84 14 116/72 99 10/24/17 11:20 10/24/17 11:20 10/24/17 11:20 10/24/17 11:20 10/24/17 11:20 - Assessment and Plan (1) Rhabdomyolysis Current Visit: Yes Status: Acute - Time Spent with Patient Total time spent is greater than 50% in coordination of care (as documented) at patient's floor/unit and/or counseling patient: Internal Medicine: Result - Labs CBC & Chem 7: 10/24/17 03:02 10/24/17 03:02 Labs: Short CBC 10/24/17 Range/Units 03:02 WBC 9.9 (4.3-11.1) K/mcL Hgb 13.4 (12.9-16.9) g/dL Hct 39.4 (37.5-50.1) % Plt Count 291 (140-400) K/mcL BMP 10/24/17 03:02 Sodium 138 Potassium 3.7 Chloride 106 Carbon Dioxide 26 BUN 6 Creatinine 0.61 L Glucose 91 Calcium 8.9 Liver Function 10/24/17 Range/Units 03:02 Total Bilirubin 0.3 (0.3-1.0) mg/dL Direct Bilirubin 0.1 (0.0-0.2) mg/dL AST 211 H (13-39) Units/L ALT 160 H (7-52) Units/L Alkaline Phosphatase 55 (34-104) Units/L Albumin 4.0 (3.5-5.7) g/dL - Attending Attestation I saw evaluated and examined this patient and my medical decision-making was reviewed with the Resident Physician. Arabella Finley. I agree with the documented findings, disposition and treatment plan as described except to any changes set forth below. We independently had [id number] contact with the patient. Patient is feeling much better today. Upper extremity pain has improved significantly. He is able to move his extremities better. No fever or chills reported overnight. On examination, he does not have any extremity tenderness. Heart sounds are normal. Breath sounds are normal. Rhabdomyolysis: Severe. Improving. CPK 10,000 today. Continue to monitor. Decrease IV fluid rate. Continues to have good urine output and renal function. Most likely will be discharged tomorrow if CPK continues to trend down. <Arabella Finley N - Last Filed: 10/24/17 10:34> (1) Rhabdomyolysis Qualifiers: Rhabdomyolysis type: non-traumatic Qualified Code(s): M62.82 - Rhabdomyolysis <Stanford Burris - Last Filed: 10/24/17 15:06> (1) Rhabdomyolysis Qualifiers: Rhabdomyolysis type: non-traumatic Qualified Code(s): M62.82 - Rhabdomyolysis
[2017-10-24 10:36] LABS: Creatine Kinase 10796 Units/L (30-223)
--- NOTE | 2017-10-24 21:41 | Electrocardiograph Report ---
[address] [address] Test Date: 2017-10-20 Pat Name: Gregg Saeed Department: EXAM5 Room: 2A Gender: M Culture Manager: : 1995 Requested By: David Crow Order Number: [id number] Reading MD: Jeanie Perez Measurements Intervals [place] Rate: 113 P: 71 MS: 191 QRS: 49 QRSD: 82 T: 41 QT: 307 QTc: 421 Interpretive Statements Sinus tachycardia Electronically Signed On 10-24-2017 21:40:19 EDT by Jeanie Perez
[2017-10-25] MEDS: 0.9 % Sodium Chloride 1,000 ML IVC SCH ×4 (05:43→14:48)
[2017-10-25 06:25] LABS: Basophils % 0.4 %; Eosinophils # 0.4 K/mcL (0.0-0.6); Eosinophils % 4.6 %; Hematocrit 38.5 % (37.5-50.1); Hemoglobin 13.2 g/dL (12.9-16.9); Immature Granulocytes % 0.7 % (0-4); Lymphocytes # 2.3 K/mcL (0.6-4.6); Lymphocytes % 24.4 %; Mean Corpuscular HGB Conc 34.3 g/dL (31.6-35.5); Mean Corpuscular Hemoglobin 29.7 pg (28.0-33.3); Mean Corpuscular Volume 86.7 fL (83.0-100.0); Mean Platelet Volume 10.4 fL (9.4-12.4); Monocytes # 0.9 K/mcL (0.0-1.3); Monocytes % 9.8 %; Neutrophils # 5.6 K/mcL (1.6-8.9); Platelet Count 263 K/mcL (140-400); Red Blood Count 4.44 M/mcL (4.19-5.50); Red Cell Distribution Width 13.2 % (11.5-14.5); Segmented Neutrophils % 60.1 %
--- NOTE | 2017-10-25 07:36 | Discharge Summary ---
Orders not resulted at time of discharge: Pending orders 10/23/17 15:19 CK Isoenzymes Routine 10/24/17 03:02 CK Isoenzymes AM 0400 10/25/17 05:28 Basic Metabolic Panel AM 0400 cpk [Creatine Kinase] AM 0400 Date of Encounter: 10/25/17 Time of Encounter: 09:50 - Discharge Diagnosis (1) Rhabdomyolysis Priority: Primary Status: Acute Qualifiers: Rhabdomyolysis type: non-traumatic Qualified Code(s): M62.82 - Rhabdomyolysis (2) Hypokalemia Priority: Secondary Status: Acute Hospital course: Mr. Saeed is a 22 year old male - Time Spent with Patient Total time spent providing and/or coordinating discharge services: Greater than 30 minutes - Discharge Medications Home Medications: No Known Home Drugs 10/21/17 [History] Allergies/Adverse Reactions: 3 Allergy/AdvReac Type Severity Reaction Status Date / Time codeine Allergy Unresponsiv Verified 10/21/17 10:11 e Amoxicillin AdvReac See Verified 10/21/17 10:11 Comments Cefprozil AdvReac See Verified 10/21/17 10:11 Comments Erythromycin Base AdvReac See Verified 10/21/17 10:11 [From Pediazole] Comments Sulfisoxazole AdvReac See Verified 10/21/17 10:11 [From Pediazole] Comments Date of admission: 10/20/17 22:56 Primary care physician: PCP NONE Discharging clinician: Jorge Barraza Anticipated date of discharge: 10/25/17 - Constitutional Vitals: Temp Pulse Resp BP Pulse Ox 97.7 F 82 16 110/71 99 10/25/17 07:23 10/25/17 07:23 10/25/17 07:23 10/25/17 07:23 10/25/17 07:23 - Patient Status Disposition: Home, Self-Care Condition: Good Functional capacity at discharge: independent ambulation Overall status at discharge: patient is back to baseline - Discharge Instructions Follow Up With: NONE,PCP [Primary Care Provider] - Josue Crandall, STATE [employer] [Family Provider] - - Diet and Activity Activity: increase activity as tolerated Diet: regular diet
[2017-10-25 08:30] LABS: BUN/Creatinine Ratio 12 (6-26); Blood Urea Nitrogen 7 mg/dL (6-20); Calcium 8.6 mg/dL (8.6-10.3); Carbon Dioxide 24 mEq/L (23-29); Chloride 105 mEq/L (98-107); Glucose 89 mg/dL (70-105); Osmolality,Calculated 285 (280-300); Potassium 3.5 mEq/L (3.5-5.1); Sodium 139 mEq/L (136-145); eGFR For Non-African Americans > 60 (> 60)
--- NOTE | 2017-10-25 13:14 | Internal Med Progress Note ---
<[place] OwingehJorge - Last Filed: 10/25/17 13:32> Hospitalist Progress Note - Encounter Date of Encounter: 10/25/17 Time of Encounter: 10:15 - Subjective Interval History: Interval history: Mr. Gregg Saeed, accompanied by mother, admitted 10/20 with cc: dark colored urine, sore upper extremities muscles after working out 3 days prior to admission. ck remains elevated >36343 day 7 of hospital admission, day 6 showed 73569 but today is >50940. Patient denies worsening muscle pain, his upper extremities remain mildly sore with limited extension as prior days have demonstrated. Kidney function remains wnl, UOP wnl. - Exam Vitals: Temp Pulse Resp BP Pulse Ox 97.6 F 88 16 124/82 99 10/25/17 10:56 10/25/17 10:56 10/25/17 10:56 10/25/17 10:56 10/25/17 10:56 Exam: General: Adult male lying in bed in no acute distress. He is alert and oriented , and answers questions appropriately. HEENT: Atraumatic and normocephalic. Cardiovascular: Regular rate and rhythm. S1 and S2 present. No murmurs, gallops , or rubs. Respiratory: CTA bilaterally. Chest rises and falls symmetrically. Gastrointestinal: Active bowel sounds present. Abdomen is soft and nontender. Extremities: No clubbing, cyanosis, no bruising, atrophy, or edema. - Assessment and Plan (1) Rhabdomyolysis Current Visit: Yes Status: Acute Assessment and Plan: CK remains >72097 on labs today day 7 of admission Continuing IV fluids; intact renal function Patient does not have identified family history of myopathy or autoimmune disease Keeping patient today, myopathy/myositis as possible underlying cause, no hx seizure, crush injury, drug/med use; of current inpatient consult services available we would like to consult rheum and appreciate any input. (2) Hypokalemia Current Visit: Yes Status: Acute Assessment and Plan: incidental, 3.3 x 1 day; resolved - Time Spent with Patient Total time spent is greater than 50% in coordination of care (as documented) at patient's floor/unit and/or counseling patient: Internal Medicine: Result - Labs CBC & Chem 7: 10/25/17 05:28 10/25/17 05:28 Labs: Short CBC 10/25/17 Range/Units 05:28 WBC 9.2 (4.3-11.1) K/mcL Hgb 13.2 (12.9-16.9) g/dL Hct 38.5 (37.5-50.1) % Plt Count 263 (140-400) K/mcL Neutrophils # 5.6 (1.6-8.9) K/mcL BMP 10/25/17 05:28 Sodium 139 Potassium 3.5 Chloride 105 Carbon Dioxide 24 BUN 7 Creatinine 0.59 L Glucose 89 Calcium 8.6 Consult Discharge Plan - Plan Referrals: NONE,PCP [Primary Care Provider] - Josue Crandall, KITCHEN STEWARDESS [Family Provider] - <Stanford Burris - Last Filed: 10/25/17 16:34> Hospitalist Progress Note - Encounter Date of Encounter: 10/25/17 Time of Encounter: 16:23 - Exam Vitals: Temp Pulse Resp BP Pulse Ox 97.6 F 88 16 124/82 99 10/25/17 10:56 10/25/17 10:56 10/25/17 10:56 10/25/17 10:56 10/25/17 10:56 - Assessment and Plan (1) Rhabdomyolysis Current Visit: Yes Status: Acute - Time Spent with Patient Total time spent is greater than 50% in coordination of care (as documented) at patient's floor/unit and/or counseling patient: Internal Medicine: Result - Labs CBC & Chem 7: 10/25/17 05:28 10/25/17 05:28 Labs: Short CBC 10/25/17 Range/Units 05:28 WBC 9.2 (4.3-11.1) K/mcL Hgb 13.2 (12.9-16.9) g/dL Hct 38.5 (37.5-50.1) % Plt Count 263 (140-400) K/mcL Neutrophils # 5.6 (1.6-8.9) K/mcL BMP 10/25/17 05:28 Sodium 139 Potassium 3.5 Chloride 105 Carbon Dioxide 24 BUN 7 Creatinine 0.59 L Glucose 89 Calcium 8.6 - Attending Attestation I saw evaluated and examined this patient and my medical decision-making was reviewed with the Resident Physician, Jorge Barraza. I agree with the documented findings, disposition and treatment plan as described except to any changes set forth below. We independently had [id number] contact with the patient. Patient evaluated earlier today. Was feeling tired overall but did not have any new complaints at this time. Revisited patient this afternoon to discuss more thorough history. Patient does a lot of upper body weight exercises 2 days prior to presentation. He began to develop soreness in his muscles soon after. He reports that he had exercised for about one hour without proper supervision. In the end of our he became very stiff in his upper extremities. Then began to develop dark-colored urine 2 days later. He was admitted here at that time. He had an episode of numbness in his upper extremity on the day of admission but since then has been doing well. However he has been feeling increasingly stiff in his right upper extremity over his biceps muscle and is unable to raise his upright upper extremity above his head. He denies any numbness or tingling in his right hand. He does complain of intermittent sensation in his right forearm that he normally feels when a tourniquet placed prior to blood draws. On examination, patient does appear to have muscle stiffness over his right biceps muscle. Decreased range of motion around his elbow. Does have good strength in his right hand and forearm. No numbness perceived. No significant tenderness to palpation. Acute severe rhabdomyolysis. CPK levels again are shown to be greater than 20, 000. Yesterday's result could be a lab error. However given patient's stiffness in right upper extremity, may need to consider complications of acute rhabdomyolysis. Will consult rheumatology to look into other possible muscle disorders that could be playing a role. Will also discuss with orthopedics about need to do muscle biopsy and concern for complications including compartment syndrome. Patient does appear to be neurovascularly intact at this time. In the meantime, continue IV hydration. Continue to monitor urine output and renal function. <[place] Owingeh,Jorge - Last Filed: 10/25/17 13:32> (1) Rhabdomyolysis Qualifiers: Rhabdomyolysis type: non-traumatic Qualified Code(s): M62.82 - Rhabdomyolysis <Stanford Burris - Last Filed: 10/25/17 16:34> (1) Rhabdomyolysis Qualifiers: Qualified Code(s): M62.82 - Rhabdomyolysis
--- NOTE | 2017-10-25 14:05 | Rheumatology Consult Note ---
<Mike Casey - Last Filed: 10/25/17 16:20> Date of Encounter: 10/25/17 Time of Encounter: 13:41 Rheumatology Assess and Plan (1) Rhabdomyolysis Current Visit: Yes Status: Acute - Likely secondary to repetitive trauma vs less likely myositis - CK has been persistently elevated at >20,000. One reading of 10,796 yesterday may have been falsely low. - AST and ALT mildly elevated at 548 and 168 respectively which is likely secondary to muscle damage as well. This is downtrending. - UA shows large blood likely reflecting myogloburia. This has resolved - Kidney function has been preserved. BUN/CR of 7/0.59 - Has been receiving fluid hydration without improvement, however this is limited due to laboratory reading limits. - I/O of -4.5 L - Physical exam shows no joint swelling, rashes, fever that might point to immunologic process. Polymiositis would more classically present over months with progressive proximal muscle weakness. - Low suspicion for drug use, hyperparathyroid, hyperthyroid, lyme, viral, compartment syndrome. Plan - Suspect that this remains largely due to increased physical activity and initial presenting CK was higher, however we are unable to trend accurately. - Patient is not experiencing end organ damage and is clinically improving, while slowly. - Do not see a reason to transfer to higher care facility at this time. Wound not recommend muscle biopsy at this time. - Will get TSH with AM labs. Ca wnl, will not test PTH - While we cannot be sure if the CK is downtrending, it is encouraging that his LFTs are coming down. Recommend checking LFTs in AM. - Recommend continued fluid hydration at this time. Qualifiers: Rhabdomyolysis type: non-traumatic Qualified Code(s): M62.82 - Rhabdomyolysis (2) Transaminitis Current Visit: Yes Status: Acute AST and ALT discussed as above. - likely elevated in the setting of skeletal muscle injury - trending down - management as above. (3) Myalgia Current Visit: Yes Status: Acute secondary to overuse injury recommend anti inflammatories and symptomatic control. Ice or heat may also be useful (4) Elevated creatine kinase Current Visit: Yes Status: Acute as above for rhabdomyolysis (5) Hypokalemia Current Visit: Yes Status: Acute K of 3.1 management per primary (6) Leukocytosis Current Visit: Yes Status: Resolved resolved. likely reactive. Qualifiers: Leukocytosis type: unspecified Qualified Code(s): D72.829 - Elevated white blood cell count, unspecified Rheumatology HPI Consult date: 10/25/17 Requesting physician: Jorge Barraza Consult reason: Elevated CK Chief complaint: Dark urine, muscle pain History of present illness: Mr. Saeed is a 22 year old male with no past medical history who presented to urgent care on 10/20 with a complaint of dark urine and bilateral bicep pain. Rheumatology has been consulted for persistently elevated CK to rule out myositis/myopathies. He states that he had worked out 3 days prior to presentation for the first time in a long time. He reports doing approximately 70 repetitions of latissimus pull downs with a lower weight. He does not exercise regularly but was trying to get in shape. He continues to experience pain with elbow extension since and feels very stiff. He does report full range of motion. Also has had an intermittent bitemporal headache with some tenderness to palpation but denies vision changes. He denies any symptoms of fevers, chills, chest pain, SOB, rashes, new lesions, fatigue, numbness, tingling. His urine he noted to be a dark yellow/brown which has since resolved. He denies hematuria, flank pain, urinary complaints. He denies recent illness but does endorse travel to [facility] as well as hiking at [employer] in the past month. He has not noticed any bug bites, swollen joints, myalgias other than above. No abdominal symptoms including nausea, vomiting, diarrhea, hematochezia or dark stools. He has never experienced this before and has been previously healthy. Upon presentation to [facility], vitals were significant for tachycardia at 135, remainder wnl. Labs significant for WBC elevation at 12.0, AST 548, ALT 168, CK >20,000, UA shows large amount of blood. He was started on IV fluids. He denies any previous medical history. Denies past surgical history Denies family history of rheumatologic disorders. Past Med Surg Social Fam HX - Past Medical History Medical history: no medical history - Past Surgical History Surgical History: no surgical history - Social History Smoking Status: Never smoker Smokeless Tobacco Status: No Alcohol use: occasionally Drug use: none - Family History Sister Adopted: No Race: Family Member Ethnicity: Non- Living Status: Still Living Medications and Allergies No Known Home Drugs 10/21/17 [History] 3 Allergy/AdvReac Type Severity Reaction Status Date / Time codeine Allergy Unresponsiv Verified 10/21/17 10:11 e Amoxicillin AdvReac See Verified 10/21/17 10:11 Comments Cefprozil AdvReac See Verified 10/21/17 10:11 Comments Erythromycin Base AdvReac See Verified 10/21/17 10:11 [From Pediazole] Comments Sulfisoxazole AdvReac See Verified 10/21/17 10:11 [From Pediazole] Comments All Systems Review: The remainder of the systems were reviewed and are negative Review of Systems: - Constitutional: Denies fevers, chills, weight loss, generalized fatigue - Head/Neck: Admits to bitemporal WARNER Denies neck stiffness, lymphadenopathy - EENT: Denies vision changes/blurriness, sore throat - CVS: Denies chest pain, palpitations, MCLEOD, edema - Pulm: Denies SOB, cough, sputum, wheezing - GI: Denies abdominal pain, anorexia, nausea, vomiting, diarrhea, constipation , melena - : Admits to dark urine. Denies dysuria, increased frequency, urgency, hematuria, - Heme: Denies ease of bleeding or bruising - MSK: Admits to myalgias. Denies joint pain, limited ROM. - Skin: Denies rashes, ulcers, color changes, - Neuro: Denies, paresthesias, focal deficits, ataxia, Rheumatology Exam Vital Signs, Last 4 Hours Temp Pulse Resp BP Pulse Ox 10/25/17 10:56 97.6 F 88 16 124/82 99 Exam: Gen.: Vitals noted. No acute distress. AAOx3, resting comfortably in bed. HEENT: PERRL/EOMI, oropharynx clear, Normocephalic, atraumatic, MMM. Mild tenderness to palpation of temporal region. Neck: Supple. No adenopathy. No thyroid nodules. Cardiac: RRR, no murmur, +S1/S2, No BLE edema Pulmonary: CTA bilaterally, no wheezes, rales or rhonchi, equal chest expansion , unlabored breathing Abdomen: soft, nontender, BS noted, no guarding, no palpable HSM Skin: warm and dry, no visible lesions or rashes. MSK: ROM intact, no joint swelling noted, gait no assessed while in bed. Non tender calf or clubbing Neuro: A&Ox3, moves all extremities, no focal deficits, sensation intact Psych: Appropriate mood and behavior, AOx3 Rheumatology Results 10/25/17 05:28 10/25/17 05:28 All other labs normal. Consult Discharge Plan - Plan Referrals: NONE,PCP [Primary Care Provider] - Josue Crandall, SKI PATROL [Family Provider] - <Bernardo Hernandez - Last Filed: 10/25/17 17:02> Date of Encounter: 10/25/17 Rheumatology HPI History of present illness: Mr. Saeed is a 22 year old male All Systems Review: The remainder of the systems were reviewed and are negative Rheumatology Exam Vital Signs, Last 4 Hours Temp Pulse Resp BP Pulse Ox 10/25/17 16:51 97.6 F 86 16 136/84 98 Rheumatology Results 10/25/17 05:28 10/25/17 05:28 All other labs normal. - Attending Attestation I examined this patient and my medical decision making was reviewed with the resident physician. I agree with the documented findings, disposition and treatment as described with these exceptions. In summary, Gregg is a 22 year old male in otherwise good health who presents with muscle aching and rhabdomyolysis. History of new onset exertion, no prodrome of prolonged weakness. Exam negative for muscle weakness in proximal muscles. CK > 20,000, AST/ALT trending downward. At this time, I still suspect that this may be exertional rhabdomyolysis. Given that he has had no prodrome of weakness, suspicion for autoimmune inflammatory myopathy is low and I would not recommend a biopsy in the acute setting. Will add TSH; he declines recreational drug use. Would continue to hydrate and manage symptomatically. I will be gone from the hospital till Sunday, when medically cleared for discharge, I would like to see him with a CK, LDH, AST/ALT in 1 week in my clinic. Our office will contact him.
[2017-10-25 16:29] LABS: Alanine Aminotransferase 130 Units/L (7-52); Albumin 3.9 g/dL (3.5-5.7); Albumin/Globulin Ratio 1.6 (1.1-2.2); Alkaline Phosphatase 52 Units/L (34-104); Aspartate Amino Transferase 104 Units/L (13-39); Bilirubin,Direct 0.1 mg/dL (0.0-0.2); Bilirubin,Indirect 0.2 mg/dL (0.0-1.2); Bilirubin,Total 0.3 mg/dL (0.3-1.0); Globulin 2.4 g/dL (2.4-3.5); Total Protein 6.3 g/dL (6.4-8.9)
[2017-10-26] MEDS: 0.9 % Sodium Chloride 1,000 ML IVC SCH ×3 (00:18→12:33)
[2017-10-26 05:47] LABS: Hematocrit 41.3 % (37.5-50.1); Hemoglobin 14.2 g/dL (12.9-16.9); Mean Corpuscular HGB Conc 34.4 g/dL (31.6-35.5); Mean Corpuscular Hemoglobin 30.1 pg (28.0-33.3); Mean Corpuscular Volume 87.7 fL (83.0-100.0); Mean Platelet Volume 10.1 fL (9.4-12.4); Platelet Count 274 K/mcL (140-400); Red Blood Count 4.71 M/mcL (4.19-5.50); Red Cell Distribution Width 13.2 % (11.5-14.5)
[2017-10-26 06:03] LABS: BUN/Creatinine Ratio 11 (6-26); Blood Urea Nitrogen 7 mg/dL (6-20); Calcium 8.8 mg/dL (8.6-10.3); Carbon Dioxide 24 mEq/L (23-29); Chloride 105 mEq/L (98-107); Creatine Kinase 1761 Units/L (30-223); Glucose 91 mg/dL (70-105); Osmolality,Calculated 284 (280-300); Potassium 3.5 mEq/L (3.5-5.1); Sodium 138 mEq/L (136-145); eGFR For Non-African Americans > 60 (> 60)
[2017-10-26 06:05] LABS: Albumin/Globulin Ratio 1.7 (1.1-2.2); Bilirubin,Direct 0.1 mg/dL (0.0-0.2); Bilirubin,Indirect 0.4 mg/dL (0.0-1.2); Bilirubin,Total 0.5 mg/dL (0.3-1.0); Globulin 2.3 g/dL (2.4-3.5); Total Protein 6.3 g/dL (6.4-8.9)
--- NOTE | 2017-10-26 14:44 | Discharge Summary ---
<FatumaStanford - Last Filed: 10/26/17 16:43> Orders not resulted at time of discharge: Pending orders 10/23/17 15:19 CK Isoenzymes Routine 10/24/17 03:02 CK Isoenzymes AM 0400 10/26/17 10:14 CK Isoenzymes Routine Date of Encounter: 10/26/17 Time of Encounter: 16:44 - Discharge Diagnosis (1) Rhabdomyolysis Status: Acute Qualifiers: Rhabdomyolysis type: non-traumatic Qualified Code(s): M62.82 - Rhabdomyolysis Hospital course: Mr. Saeed is a 22 year old male - Time Spent with Patient Total time spent providing and/or coordinating discharge services: - Discharge Medications Home Medications: No Known Home Drugs 10/21/17 [History] Allergies/Adverse Reactions: 3 Allergy/AdvReac Type Severity Reaction Status Date / Time codeine Allergy Unresponsiv Verified 10/21/17 10:11 e Amoxicillin AdvReac See Verified 10/21/17 10:11 Comments Cefprozil AdvReac See Verified 10/21/17 10:11 Comments Erythromycin Base AdvReac See Verified 10/21/17 10:11 [From Pediazole] Comments Sulfisoxazole AdvReac See Verified 10/21/17 10:11 [From Pediazole] Comments Date of admission: 10/20/17 22:56 Primary care physician: PCP NONE Consults: 10/25/17 12:39 Consult to Rheumatology [CONS] Routine Consulting Provider: Bernardo Hernandez Reason for Consult: persisting rhabdo, >55013 for over 6 days, dipped yesterday but >20k again today, renal function intact since admission; no history of autoimmune dx in self/family Call Completed: Yes - Constitutional Vitals: Temp Pulse Resp BP Pulse Ox 98.0 F 74 16 107/69 97 10/26/17 16:02 10/26/17 16:02 10/26/17 16:02 10/26/17 16:02 10/26/17 16:02 - Patient Status Disposition: Home, Self-Care Condition: Good - Discharge Instructions Instructions: Rhabdomyolysis (DC), Rhabdomyolysis (GEN) Follow Up With: Jorge Barraza DO [Resident] - (web requested 10/26/2017) NONE,PCP [Primary Care Provider] - Josue Crandall, [employer] [Family Provider] - Additional Instructions: please have your kidney function check via a basic metabolic panel (blood work done in the [place] outpatient lab; order is in) in around 3 days, continue adequate hydration at least 8oz's 8 times a day, increase if losing water from temperature; decrease upper extremity activity/lifting for at least 2 weeks - Attending Attestation I saw evaluated and examined this patient and my medical decision-making was reviewed with the Resident Physician, Jorge Barraza. I agree with the documented findings, disposition and treatment plan as described except to any changes set forth below. We independently had [id number] contact with the patient. 22-year-old male patient with no significant past medical history was admitted here with acute severe rhabdomyolysis. Patient has not been exercising his upper extremities for the first time and exercised heavily for about an hour and began to develop dark-colored urine along with muscular pain over the next 2 days. His initial CPK was 2000 but a short up over the next 8 to greater than 20,000 which was the upper limit of her lab. Patient's CPK level persisted at greater than 20,000 for the next few days while he was treated aggressively with IV fluids. His renal function remained stable. He had good urine output. As his CPK remained high, right upper extremity MRI was done which did not show any abscess but patient did have signs of myositis likely related to rhabdomyolysis. Patient is clinically doing much better today. His right upper extremity stiffness is improving. He is able to move his extremities above his head. Minimal soreness/tenderness on examination. He CPK is now at 1500 and is clinically stable to be discharged. He will follow up with PCP for further management. Encouraged to drink more water when he recovers from rhabdomyolysis. <Jorge Barraza - Last Filed: 10/26/17 18:47> - NOTES TO OUTPATIENT PROVIDER Notes to Outpatient Provider: admitted for rhabdo in setting of intense exercise , agg hydration, no renetta, good uop, advised bmp 3-5 days after d/c before pcp follow-up; myositis low on differential but concern for it if repeat incident Orders not resulted at time of discharge: Pending orders 10/23/17 15:19 CK Isoenzymes Routine 10/24/17 03:02 CK Isoenzymes AM 0400 10/26/17 10:14 CK Isoenzymes Routine Date of Encounter: 10/26/17 Time of Encounter: 10:20 - Discharge Diagnosis (1) Rhabdomyolysis Priority: Primary Status: Acute Qualifiers: Rhabdomyolysis type: non-traumatic Qualified Code(s): M62.82 - Rhabdomyolysis (2) Hypokalemia Priority: Secondary Status: Acute Hospital course: Mr. Saeed is a 22 year old male who presented with dark colored urine after rigorous exercise, UA showed +blood but no rbcs, workup for rhabdo included aggressive fluid hydration, urine alkalynization, serial CK levels, transaminase levels, BMPs, strict I/Os. Patient's kidney function remained intact, however CK remained >96098 for 7 days. Myositis as a differential considered; Rheum consulted who is willing to follow-up with patient in clinic if desired. MRI upper extremity showed evidence of muscle strain/inflammation without abscess or compartment syndrome. Discharged after recorded CKs of 1700, 1500. Plan is for reduced physical activity (2 weeks), increased hydration/ adjusting for sweating/fluid loss/heat, and BMP in 3 days then follow-up with/ establish with PCP. - Time Spent with Patient Total time spent providing and/or coordinating discharge services: Date of admission: 10/20/17 22:56 Primary care physician: PCP NONE Consults: 10/25/17 12:39 Consult to Rheumatology [CONS] Routine Consulting Provider: Bernardo Hernandez Reason for Consult: persisting rhabdo, >41189 for over 6 days, dipped yesterday but >20k again today, renal function intact since admission; no history of autoimmune dx in self/family Call Completed: Yes - Constitutional Vitals: Temp Pulse Resp BP Pulse Ox 98.2 F 94 16 115/73 98 10/26/17 11:07 10/26/17 11:07 10/26/17 11:07 10/26/17 11:10/26/17 11:07 Exam: General: Adult male lying in bed in no acute distress. He is alert and oriented , and answers questions appropriately. HEENT: Atraumatic and normocephalic. Cardiovascular: Regular rate and rhythm. S1 and S2 present. No murmurs, gallops , or rubs. Respiratory: CTA bilaterally. Chest rises and falls symmetrically. Gastrointestinal: Active bowel sounds present. Abdomen is soft and nontender. Extremities: No clubbing, cyanosis, no bruising, atrophy, or edema. improved range of motion, bilateral upper extremities, no pallor, numbness/paresthesia distal to biceps - Patient Status Functional capacity at discharge: independent ambulation Overall status at discharge: patient is progressing back to baseline - Diet and Activity Activity: other (as per additional instructions) Diet: regular diet
[2017-10-26 16:08] VITALS: BP 107/69
[2017-10-26 17:41] LABS: CK-BB (CK isoenzymes) 0 % (0-0); CK-MB (CK isoenzymes) 0 % (0-4); CK-MM (CK-isoenzymes) 100 % (96-100)
[2017-10-27 20:31] LABS: CK-BB (CK isoenzymes) 0 % (0-0); CK-MB (CK isoenzymes) 0 % (0-4); CK-MM (CK-isoenzymes) 100 % (96-100)
[2017-10-28 12:11] LABS: CK Total (Ck Isoenzymes) 12563 U/L (20-200)
[2017-10-29 08:48] LABS: CK Total (Ck Isoenzymes) 20969 U/L (20-200)
[2017-10-30 12:21] LABS: CK-BB (CK isoenzymes) 0 % (0-0); CK-MB (CK isoenzymes) 0 % (0-4); CK-MM (CK-isoenzymes) 100 % (96-100)
[2017-10-30 13:04] LABS: CK Total (Ck Isoenzymes) 4056 U/L (20-200)
== END 2017-10-26 16:53 | disposition home or self-care (01) | DRG 558 ==
LOC: EMEROOARM 20:56 → 2ANU 20:56 → SUATTDRO 22:56 → 2ANU 23:38
PROVIDERS: ADMIT Internal Medicine; ATTEND Internal Medicine